=== PATIENT | male | born 1955 | race Caucasian/White ===

== ENCOUNTER 2017-03-20 14:31 | Inpatient (IN) | payer SELFPAY ==
[~2017-03-20] VITALS: Ht 162.6 cm; Wt 63.2 kg
[2017-03-20] MEDS ORDERED: fentaNYL PF VIAL 100 MCG/2 ML VIAL ONE (14:45)
[2017-03-20] MEDS: fentaNYL PF VIAL 100 MCG/2 ML VIAL IV PRN ×4 (14:50→15:36)
--- NOTE | 2017-03-20 14:52 | EKG ---
[facility] [address] [place] [address] Test Date: 2017-03-20 Test Time: 14:37:45 Pat Name: JOEL JAUREGUI Department: Room: Gender: M System Support Developer: : 1955 Requested By: PALOMA KAUFMAN Order Number: [id number] Reading MD: Measurements Intervals [place] Rate: 72 P: 62 [place]: 126 QRS: 65 QRSD: 106 T: 44 QT: 436 QTc: 479 Interpretive Statements SINUS RHYTHM LEFT ATRIAL ABNORMALITY INCOMPLETE RIGHT BUNDLE BRANCH BLOCK QRS(T) CONTOUR ABNORMALITY CONSIDER ANTEROLATERAL MYOCARDIAL DAMAGE PROLONGED QT RI6.01 Unconfirmed report No previous ECG available for comparison
[2017-03-20 14:54] LABS: POTASSIUM ISTAT 2.7 mmol/L (3.5-5.0)
[2017-03-20 14:58] LABS: BASO # 0.1 x10^3/uL (0.0-0.2); BASO % 1 % (0-3); EOS % 1 % (0-3); HEMATOCRIT 39.5 % (39.0-53.0); HEMOGLOBIN 13.3 g/dL (13.0-17.5); LYMPH # 2.3 x10^3/uL (1.0-4.8); LYMPH % 29 % (24-48); MEAN CORPUSCULAR HEMOGLOBIN 32 pg (25-35); MEAN CORPUSCULAR HGB CONC 34 g/dL (31-37); MEAN CORPUSCULAR VOLUME 96 fL (79-100); MONO % 10 % (0-9); NEUT % 59 % (31-73); PLATELET COUNT 183 x10^3/uL (140-400)
[2017-03-20 15:07] LABS: INR 1.2 (0.8-1.1); PROTHROMBIN TIME PATIENT 14.2 SEC (11.7-14.0)
[2017-03-20 15:11] LABS: CALCIUM 8.9 mg/dL (8.5-10.1); CREATININE 1.1 mg/dL (0.7-1.3); GFR 67.8
[2017-03-20 15:13] LABS: POTASSIUM 2.7 mmol/L (3.5-5.1)
[2017-03-20] MEDS ORDERED: CONTRAST GIVEN MC PRN (15:15)
[2017-03-20] MEDS ORDERED: ONDANSETRON PF 4 MG/2 ML VIAL. IV ONE (15:15)
--- NOTE | 2017-03-20 15:24 | RAD ---
Indication fall 2024 feet. Multiple trauma. The head and cervical spine were evaluated. Images of the cervical spine were reformatted in the coronal and sagittal planes. Several additional exams were obtained which are the subject of separate dictations. CT head: Findings. The calvarium appears unremarkable. The visualized paranasal sinuses appear normal. There is no subdural or epidural hematoma. Ventricles and sulci are normal given the patient's age. There is no mass or midline shift. There is no hemorrhage. No acute intracranial finding is seen. CT cervical spine: Findings The lung apices are clear. No significant soft tissue finding is seen in the neck. There are some modest spondylitic changes in the cervical spine. An acute finding is not seen. No acute or significant finding is seen on the reformatted images. IMPRESSION: Modest spondylitic changes in the cervical spine. No acute finding seen No acute finding in the head PQRS Compliance Statement: One or more of the following individualized dose reduction techniques were utilized for this examination: 1. Automated exposure control 2. Adjustment of the mA and/or kV according to patient size 3. Use of iterative reconstruction technique
--- NOTE | 2017-03-20 15:36 | RAD ---
Indication fall 2024. Multiple trauma. The chest abdomen and pelvis were evaluated. Approximately 75 cc of Omnipaque 300 was administered intravenously. No oral contrast was administered. Several additional exams were obtained which are the subject of separate dictations. CT chest: Findings The thoracic aorta appears unremarkable. There is no significant hilar or mediastinal adenopathy. No acute finding is seen in either lung. There is no pleural fluid. There is no pneumothorax. There is no evidence of pulmonary contusion. CT abdomen and pelvis: Findings. The liver is unremarkable. No splenic abnormality is seen and the gallbladder appears grossly normal. No pancreatic abnormality is seen. The adrenal glands are unremarkable. There is a 2 cm cyst associated with the left kidney. The kidneys are otherwise unremarkable. The stomach is distended with fluid and gas. An acute finding in the abdomen is not seen. No acute finding is seen in the pelvis. IMPRESSION: No acute finding seen in the chest, abdomen or pelvis PQRS Compliance Statement: One or more of the following individualized dose reduction techniques were utilized for this examination: 1. Automated exposure control 2. Adjustment of the mA and/or kV according to patient size 3. Use of iterative reconstruction technique
[2017-03-20] MEDS ORDERED: MORPHINE SULFATE 4 MG/ML DISP.SYRIN. IV/SQ PRN (15:45)
[2017-03-20] MEDS ORDERED: IOHEXOL 300 MG/ML 75 ML VIAL IV ONE (15:45)
--- NOTE | 2017-03-20 15:46 | RAD ---
Indication multiple trauma Axial images of the thoracic and lumbar spine were obtained. Images were reformatted in the coronal and sagittal planes. Several additional examinations were performed which are the subject of separate dictations. CT thoracic spine: Findings The axial images are unremarkable with regards to any acute finding. The reformatted images also are negative with regards to fracture. CT of the lumbar spine: The axial images show no acute finding. No fracture is seen. The reformatted images in the coronal and sagittal planes are also negative with regards to any fracture. A unilateral pars defect is noted on the left at L5 IMPRESSION: No acute finding seen in the thoracic or lumbar spine
--- NOTE | 2017-03-20 16:33 | RAD ---
Indication fall. AP and lateral views of the left humerus were obtained. There is a dislocation at the elbow. A fracture is not seen. Postreduction imaging of the elbow is advised
[2017-03-20] MEDS ORDERED: PROPOFOL 20 ML IV ONE ×2 (16:35→16:45)
--- NOTE | 2017-03-20 16:35 | RAD ---
Indication trauma. Pain. There is a dislocation at the elbow. The distal humerus is displaced ventral out of the elbow joint. There are bony fragments seen adjacent to the ulna which may represent small avulsed bony fragments. Postreduction imaging is advised.. IMPRESSION: Dislocated elbow
--- NOTE | 2017-03-20 16:37 | RAD ---
Indication multiple trauma. AP and lateral views of the left forearm were obtained. Known dislocated elbow is noted. There may be small avulsed fragments associated with the dislocated elbow. No additional finding is seen involving the forearm.
[2017-03-20] MEDS ORDERED: POTASSIUM CHLORIDE 30 MEQ in IV NORMAL SALINE 1000ML BAG 1,000 ML IV ONE (16:45)
--- NOTE | 2017-03-20 16:47 | RAD ---
EXAM: 1. Left knee 3 views. 2. Bilateral ankles 3 views. 3. Bilateral feet 3 views. 4. Left calcaneus 1 view. HISTORY: Trauma, fall, bilateral pain. COMPARISON: None. FINDINGS: No fractures are appreciated about the left knee. Joint spaces and alignment are maintained. There is no joint effusion. There is a comminuted fracture of the left calcaneus. Fracture lines intersect at least the posterior subtalar facet. There is a component of posterior displacement of the main calcaneal body fragment. The calcaneocuboid joint appears at least mildly widened. A small chip fracture fragment is seen along the posterior/inferior talus. Soft tissue swelling is noted. There is dorsal dislocation at the 5th metacarpophalangeal joint. There are nondisplaced fractures of the 3rd and 4th metatarsal necks. No fractures are appreciated about the left ankle. Joint spaces and alignment are maintained. No fractures are appreciated about the right ankle. There is a small osteophyte along the lateral corner of the talar dome with preservation of the joint spaces. No fractures are appreciated within the right foot. IMPRESSION: 1. Comminuted intra-articular displaced fracture of the left calcaneus with depression of Boehler's angle. 2. Widening of the calcaneal cuboid joint. Correlate to interval stability. 3. Dorsal dislocation of the left 5th metacarpophalangeal joint. 4. Nondisplaced fractures of the 3rd and 4th metatarsal necks.
[2017-03-20 17:04] LABS: DIRECT BILIRUBIN 0.1 mg/dL (0.0-0.2); TOTAL BILIRUBIN 0.8 mg/dL (0.2-1.0); TOTAL PROTEIN 6.9 g/dL (6.4-8.2)
[2017-03-20] MEDS ORDERED: ONDANSETRON PF 4 MG/2 ML VIAL. IV PRN (17:45)
[2017-03-20] MEDS ORDERED: DOCUSATE SODIUM 100 MG CAPSULE. PO PRN (17:45)
[2017-03-20] MEDS ORDERED: hydrALAZINE 20 MG/ML VIAL. IVP PRN (17:45)
[2017-03-20] MEDS ORDERED: IV NORMAL SALINE 1000ML BAG 1,000 ML IV ONE (17:45)
[2017-03-20] MEDS ORDERED: ACETAMINOPHEN 325 MG TABLET. PO PRN (17:45)
--- NOTE | 2017-03-20 17:51 | PDOC1 ---
History and Physical Date of Admission Date of Admission 03/20/17 Identification/Chief Complaint Chief Complaint fall from a roof Problems: Source Source: Chart review, Patient History of Present Illness History of Present Illness 61yo M, with h/o HTN, not on any meds, fell from a roof today. he was working on the roof, then slided down with a foam and fell from the roof about 20feet high. He landed on the ground with left side, mainly elbow and left ankle, not hip and head was only hit mildly and not lost consciousness. ER XR showed left calcaneus fx and left elbow dislocated. ERP did reduce the left elbow, with a sling now. and left ankle has splint on now. ERP told me she talked to dr. Escobedo who will not operate on pt and recommend fu with dr. Iniguez [phone] as outpt. pt was found K 2.7 in ER, denies etoh, N/V or diarrhea. XR IMPRESSION: 1. Comminuted intra-articular displaced fracture of the left calcaneus with depression of Boehler's angle. 2. Widening of the calcaneal cuboid joint. Correlate to interval stability. 3. Dorsal dislocation of the left 5th metacarpophalangeal joint. 4. Nondisplaced fractures of the 3rd and 4th metatarsal necks. Past Medical History Cardiovascular: HTN Past Surgical History Past Surgical History: No pertinent history Family History Family History: Hypertension Social History Smoke: Quit ALCOHOL: rare Drugs: None Current Medications Current Medications Current Medications Medications (Trade) Dose Ordered Sig/Stephanie Start Time Stop Time Status Last Admin Dose Admin Fentanyl Citrate (Fentanyl 2ml Vial) 25 mcg PRN Q15MIN PRN 03/20/17 14:45 03/21/17 14:44 03/20/17 15:36 25 MCG Info (Do NOT chart on this entry -- for MONITORING) 1 each PRN DAILY PRN 03/20/17 15:15 03/22/17 15:14 Iohexol (Omnipaque 300 Mg/ml) 75 ml 1X ONCE 03/20/17 15:45 03/20/17 15:46 DC 03/20/17 15:08 75 ML Morphine Sulfate 4 mg PRN Q15MIN PRN 03/20/17 15:45 03/21/17 15:44 03/20/17 15:51 4 MG Ondansetron HCl (Zofran) 4 mg 1X ONCE 03/20/17 15:15 03/20/17 15:16 DC 03/20/17 15:14 4 MG Potassium Chloride 30 meq/ Sodium Chloride 1,015 ml @ 75 mls/hr 1X ONCE 03/20/17 16:45 03/21/17 06:16 03/20/17 16:36 75 MLS/HR Propofol 20 ml @ 60 mls/hr 1X ONCE 03/20/17 16:45 03/20/17 17:04 DC Allergies Allergies Allergies Coded Allergies Type Severity Reaction Last Updated Verified No Known Drug Allergies 03/20/17 No ROS Review of System CONSTITUTIONAL: No fever or chills EYES: No recent changes SKIN: No rash or itching CARDIOVASCULAR: No chest pain, syncope, palpitations, or edema RESPIRATORY: No SOB or cough GASTROINTESTINAL: No nausea, vomiting or abdominal pain NEUROLOGICAL: No headaches or weakness ENDOCRINE: No cold or heat intolerance GENITOURINARY: No urgency or frequency of urination MUSCULOSKELETAL: No back pain or joint pain LYMPHATICS: No enlarged lymph nodes PSYCHIATRIC: No anxiety or depression Physical Exam Physical Exam GEN.: No apparent distress. Alert and oriented. HEENT: Head is normocephalic, atraumatic NECK: Supple. LUNGS: Clear to auscultation. HEART: RRR, S1, S2 present. Peripheral pulses intact ABDOMEN: Soft, nontender. Positive bowel sounds. EXTREMITIES: Without any cyanosis. left arm with a sling, left foot has splint on, can move toes. NEUROLOGIC: Normal speech, normal tone PSYCHIATRIC: Normal affect, normal mood. SKIN: No ulcerations Vitals Vitals Vital Signs Date Time Temp Pulse Resp B/P (MAP) Pulse Ox O2 Delivery O2 Flow Rate FiO2 03/20/17 15:36 16 99 Nasal Cannula 2.0 Labs Labs Laboratory Tests Test 03/20/17 14:35 03/20/17 14:42 White Blood Count 8.0 x10^3/uL (4.0-11.0) Red Blood Count 4.10 x10^6/uL (4.30-5.70) Hemoglobin 13.3 g/dL (13.0-17.5) Hematocrit 39.5 % (39.0-53.0) Mean Corpuscular Volume 96 fL (79-100) Mean Corpuscular Hemoglobin 32 pg (25-35) Mean Corpuscular Hemoglobin Concent 34 g/dL (31-37) Red Cell Distribution Width 13.0 % (11.5-14.5) Platelet Count 183 x10^3/uL (140-400) Neutrophils (%) (Auto) 59 % (31-73) Lymphocytes (%) (Auto) 29 % (24-48) Monocytes (%) (Auto) 10 % (0-9) Eosinophils (%) (Auto) 1 % (0-3) Basophils (%) (Auto) 1 % (0-3) Neutrophils # (Auto) 4.7 x10^3uL (1.8-7.7) Lymphocytes # (Auto) 2.3 x10^3/uL (1.0-4.8) Monocytes # (Auto) 0.8 x10^3/uL (0.0-1.1) Eosinophils # (Auto) 0.0 x10^3/uL (0.0-0.7) Basophils # (Auto) 0.1 x10^3/uL (0.0-0.2) Prothrombin Time 14.2 SEC (11.7-14.0) Prothromb Time International Ratio 1.2 (0.8-1.1) Activated Partial Thromboplast Time 27 SEC (24-38) Sodium Level 144 mmol/L (136-145) Potassium Level 2.7 mmol/L (3.5-5.1) Chloride Level 104 mmol/L (98-107) Carbon Dioxide Level 31 mmol/L (21-32) Anion Gap 9 (6-14) 15 mmol/L (6-14) Blood Urea Nitrogen 12 mg/dL (8-26) Creatinine 1.1 mg/dL (0.7-1.3) Estimated GFR (Cockcroft-Gault) 67.8 Glucose Level 135 mg/dL (70-99) 131 mg/dL (70-99) Lactic Acid Level 2.9 mmol/L (0.4-2.0) Calcium Level 8.9 mg/dL (8.5-10.1) Total Bilirubin 0.8 mg/dL (0.2-1.0) Direct Bilirubin 0.1 mg/dL (0.0-0.2) Aspartate Amino Transf (AST/SGOT) 23 U/L (15-37) Alanine Aminotransferase (ALT/SGPT) 24 U/L (16-63) Alkaline Phosphatase 66 U/L (46-116) Total Protein 6.9 g/dL (6.4-8.2) Albumin 4.0 g/dL (3.4-5.0) Ethyl Alcohol Level < 10 mg/dL (0-10) Bedside Hemoglobin 12.9 g/dL (14-18) Bedside Hematocrit 38 % (37-52) Bedside Sodium 143 mmol/L (135-145) Bedside Potassium 2.7 mmol/L (3.5-5.0) Bedside Chloride 102 mmol/L (98-110) Bedside Total CO2 30 mmol/L (23-32) Bedside Blood Urea Nitrogen 11 mg/dL (8-26) Bedside Creatinine 1.1 mg/dL (0.5-1.4) Bedside Ionized Calcium (Farncesca) 1.11 mmol/L (1.13-1.32) Laboratory Tests Test 03/20/17 14:35 03/20/17 14:42 White Blood Count 8.0 x10^3/uL (4.0-11.0) Red Blood Count 4.10 x10^6/uL (4.30-5.70) Hemoglobin 13.3 g/dL (13.0-17.5) Hematocrit 39.5 % (39.0-53.0) Mean Corpuscular Volume 96 fL (79-100) Mean Corpuscular Hemoglobin 32 pg (25-35) Mean Corpuscular Hemoglobin Concent 34 g/dL (31-37) Red Cell Distribution Width 13.0 % (11.5-14.5) Platelet Count 183 x10^3/uL (140-400) Neutrophils (%) (Auto) 59 % (31-73) Lymphocytes (%) (Auto) 29 % (24-48) Monocytes (%) (Auto) 10 % (0-9) Eosinophils (%) (Auto) 1 % (0-3) Basophils (%) (Auto) 1 % (0-3) Neutrophils # (Auto) 4.7 x10^3uL (1.8-7.7) Lymphocytes # (Auto) 2.3 x10^3/uL (1.0-4.8) Monocytes # (Auto) 0.8 x10^3/uL (0.0-1.1) Eosinophils # (Auto) 0.0 x10^3/uL (0.0-0.7) Basophils # (Auto) 0.1 x10^3/uL (0.0-0.2) Prothrombin Time 14.2 SEC (11.7-14.0) Prothromb Time International Ratio 1.2 (0.8-1.1) Activated Partial Thromboplast Time 27 SEC (24-38) Sodium Level 144 mmol/L (136-145) Potassium Level 2.7 mmol/L (3.5-5.1) Chloride Level 104 mmol/L (98-107) Carbon Dioxide Level 31 mmol/L (21-32) Anion Gap 9 (6-14) 15 mmol/L (6-14) Blood Urea Nitrogen 12 mg/dL (8-26) Creatinine 1.1 mg/dL (0.7-1.3) Estimated GFR (Cockcroft-Gault) 67.8 Glucose Level 135 mg/dL (70-99) 131 mg/dL (70-99) Lactic Acid Level 2.9 mmol/L (0.4-2.0) Calcium Level 8.9 mg/dL (8.5-10.1) Total Bilirubin 0.8 mg/dL (0.2-1.0) Direct Bilirubin 0.1 mg/dL (0.0-0.2) Aspartate Amino Transf (AST/SGOT) 23 U/L (15-37) Alanine Aminotransferase (ALT/SGPT) 24 U/L (16-63) Alkaline Phosphatase 66 U/L (46-116) Total Protein 6.9 g/dL (6.4-8.2) Albumin 4.0 g/dL (3.4-5.0) Ethyl Alcohol Level < 10 mg/dL (0-10) Bedside Hemoglobin 12.9 g/dL (14-18) Bedside Hematocrit 38 % (37-52) Bedside Sodium 143 mmol/L (135-145) Bedside Potassium 2.7 mmol/L (3.5-5.0) Bedside Chloride 102 mmol/L (98-110) Bedside Total CO2 30 mmol/L (23-32) Bedside Blood Urea Nitrogen 11 mg/dL (8-26) Bedside Creatinine 1.1 mg/dL (0.5-1.4) Bedside Ionized Calcium (Francesca) 1.11 mmol/L (1.13-1.32) VTE Prophylaxis Ordered VTE Prophylaxis Devices: Yes VTE Pharmacological Prophylaxi: Yes Assessment/Plan Assessment/Plan traumatic left elbow dislocation from mechanical fall from a roof s/p reduction traumatic left calcaneus fx with splint Traumatic Dorsal dislocation of the left 5th metacarpophalangeal joint. traumatic left Nondisplaced fractures of the 3rd and 4th metatarsal necks. hypokalemia htn plan: dr. Escobedo consult, will not operate on pt and recommend fu with dr. Iniguez as outpt. pain control PTOT replete K check Mag dvt ppx check vitd Pt lives at home with brother and sister in law, will see how he does tmr, may need rehab if cannot handle at home FELIPA OVIEDO MD Mar 20, 2017 17:51
[2017-03-20] MEDS ORDERED: POTASSIUM CHLORIDE 20 MEQ TABLET.ER. PO ONE (18:00)
[2017-03-20] MEDS: oxyCODONE/APAP 5/325 1 TAB TABLET PO PRN (19:40)
[2017-03-20] MEDS: MORPHINE SULFATE 2 MG/ML DISP.SYRIN. IV PRN ×2 (19:40→23:00)
--- NOTE | 2017-03-20 19:46 | ED.ADGEN ---
Adult General Chief Complaint Chief Complaint: TRAUMA ACTIVATION HPI HPI Patient is a 61 year old man, who denies a past medical history, who presents to the emergency department via EMS, with report of a fall approximately 22 feet. Patient states that he was on a roof, kneeling on a pad performed as, when the pad slid, and he fell off the roof. He states he landed on his left foot, and then fell onto his left elbow and patient is complaining of pain in his left foot, and left elbow. He denies striking his head or neck, denies any loss of consciousness. Denies any chest pain, shortness breath, nausea, vomiting , preceding symptoms. Patient with splint in place via EMS on left elbow and left lower extremity. He denies any previous injuries to these areas. Complaining of tenderness and pain in his foot and elbow. C-collar was placed by EMS prior to transport to the ED. Trauma activation called based on mechanism of action upon patient's arrival in the ED. Review of Systems Review of Systems Constitutional: Denies fever or chills. [] Eyes: Denies change in visual acuity. [] HENT: Denies nasal congestion or sore throat. [] Respiratory: Denies cough or shortness of breath. [] Cardiovascular: Denies chest pain or edema. [] GI: Denies abdominal pain, nausea, vomiting, bloody stools or diarrhea. [] : Denies dysuria. [] Musculoskeletal: Denies back pain, complaining of pain in the left elbow and forearm, also in the left foot and ankle. Integument: Denies rash. [] Neurologic: Denies headache, focal weakness or sensory changes. [] Endocrine: Denies polyuria or polydipsia. [] Lymphatic: Denies swollen glands. [] Psychiatric: Denies depression or anxiety. [] Current Medications Current Medications Current Medications Medications (Trade) Dose Ordered Sig/Stephanie Start Time Stop Time Status Last Admin Dose Admin Fentanyl Citrate (Fentanyl 2ml Vial) 25 mcg PRN Q15MIN PRN 03/20/17 14:45 03/21/17 14:44 03/20/17 15:36 25 MCG Info (Do NOT chart on this entry -- for MONITORING) 1 each PRN DAILY PRN 03/20/17 15:15 03/22/17 15:14 Iohexol (Omnipaque 300 Mg/ml) 75 ml 1X ONCE 03/20/17 15:45 03/20/17 15:46 DC 03/20/17 15:08 75 ML Morphine Sulfate 4 mg PRN Q15MIN PRN 03/20/17 15:45 03/21/17 15:44 03/20/17 15:51 4 MG Ondansetron HCl (Zofran) 4 mg 1X ONCE 03/20/17 15:15 03/20/17 15:16 DC 03/20/17 15:14 4 MG Potassium Chloride 30 meq/ Sodium Chloride 1,015 ml @ 75 mls/hr 1X ONCE 03/20/17 16:45 03/21/17 06:16 03/20/17 16:36 75 MLS/HR Propofol 20 ml @ 60 mls/hr 1X ONCE 03/20/17 16:45 03/20/17 17:04 DC 03/20/17 15:54 60 MLS/HR Allergies Allergies Allergies Coded Allergies Type Severity Reaction Last Updated Verified No Known Drug Allergies 03/20/17 No Physical Exam Physical Exam Constitutional: Well developed, well nourished, no acute distress, non-toxic appearance. [] HENT: Normocephalic, atraumatic, bilateral external ears normal, oropharynx moist, no oral exudates, nose normal. [] Eyes: PERRLA, EOMI, conjunctiva normal, no discharge. [] Neck: Normal range of motion, no tenderness, supple, no stridor. [] Cardiovascular:Heart rate regular rhythm, no murmur [] Lungs & Thorax: Bilateral breath sounds clear to auscultation [] Abdomen: Bowel sounds normal, soft, no tenderness, no masses, no pulsatile masses. [] Skin: Warm, dry, no erythema, no rash. [] Back: No tenderness, no CVA tenderness. [] Extremities: No tenderness, no cyanosis, no clubbing, ROM intact, no edema. [] Neurologic: Alert and oriented X 3, normal motor function, normal sensory function, no focal deficits noted. [] Psychologic: Affect normal, judgement normal, mood normal. [] Current Patient Data Vital Signs Vital Signs Date Time Temp Pulse Resp B/P (MAP) Pulse Ox O2 Delivery O2 Flow Rate FiO2 03/20/17 15:36 16 99 Nasal Cannula 2.0 Lab Values Laboratory Tests Test 03/20/17 14:35 03/20/17 14:42 White Blood Count 8.0 x10^3/uL (4.0-11.0) Red Blood Count 4.10 x10^6/uL (4.30-5.70) L Hemoglobin 13.3 g/dL (13.0-17.5) Hematocrit 39.5 % (39.0-53.0) Mean Corpuscular Volume 96 fL (79-100) Mean Corpuscular Hemoglobin 32 pg (25-35) Mean Corpuscular Hemoglobin Concent 34 g/dL (31-37) Red Cell Distribution Width 13.0 % (11.5-14.5) Platelet Count 183 x10^3/uL (140-400) Neutrophils (%) (Auto) 59 % (31-73) Lymphocytes (%) (Auto) 29 % (24-48) Monocytes (%) (Auto) 10 % (0-9) H Eosinophils (%) (Auto) 1 % (0-3) Basophils (%) (Auto) 1 % (0-3) Neutrophils # (Auto) 4.7 x10^3uL (1.8-7.7) Lymphocytes # (Auto) 2.3 x10^3/uL (1.0-4.8) Monocytes # (Auto) 0.8 x10^3/uL (0.0-1.1) Eosinophils # (Auto) 0.0 x10^3/uL (0.0-0.7) Basophils # (Auto) 0.1 x10^3/uL (0.0-0.2) Prothrombin Time 14.2 SEC (11.7-14.0) H Prothrombin Time INR 1.2 (0.8-1.1) H PTT 27 SEC (24-38) Sodium Level 144 mmol/L (136-145) Potassium Level 2.7 mmol/L (3.5-5.1) *L Chloride Level 104 mmol/L (98-107) Carbon Dioxide Level 31 mmol/L (21-32) Anion Gap 9 (6-14) 15 mmol/L (6-14) H Blood Urea Nitrogen 12 mg/dL (8-26) Creatinine 1.1 mg/dL (0.7-1.3) Estimated GFR (Cockcroft-Gault) 67.8 Glucose Level 135 mg/dL (70-99) H 131 mg/dL (70-99) H Lactic Acid Level 2.9 mmol/L (0.4-2.0) H Calcium Level 8.9 mg/dL (8.5-10.1) Magnesium Level 2.0 mg/dL (1.8-2.4) Total Bilirubin 0.8 mg/dL (0.2-1.0) Direct Bilirubin 0.1 mg/dL (0.0-0.2) Aspartate Amino Transferase (AST) 23 U/L (15-37) Alanine Aminotransferase (ALT) 24 U/L (16-63) Alkaline Phosphatase 66 U/L (46-116) Total Protein 6.9 g/dL (6.4-8.2) Albumin 4.0 g/dL (3.4-5.0) Ethyl Alcohol Level < 10 mg/dL (0-10) POC Hemoglobin 12.9 g/dL (14-18) L POC Hematocrit 38 % (37-52) POC Sodium 143 mmol/L (135-145) POC Potassium 2.7 mmol/L (3.5-5.0) L POC Chloride 102 mmol/L (98-110) POC Total CO2 30 mmol/L (23-32) POC Blood Urea Nitrogen 11 mg/dL (8-26) POC Creatinine 1.1 mg/dL (0.5-1.4) POC Ionized Calcium (Francesca) 1.11 mmol/L (1.13-1.32) L Laboratory Tests 03/20/17 14:35 Laboratory Tests 03/20/17 14:35 03/20/17 14:42 EKG EKG ECG: Sinus rhythm, heart rate 72 bpm, upright axis, incomplete right bundle- branch block noted, with contour abnormalities noted in the anterior lateral leads, QTc of 479, MN 126, QRS of 106. Abnormal ECG, does not meet STEMI criteria. As interpreted by me.[] Radiology/Procedures Radiology/Procedures [][facility] [address] [place], [place] [id number] IMAGING REPORT Signed PATIENT: JOEL JAUREGUI ACCOUNT: [id number] : 1955 LOCATION: ER AGE: 61 SEX: M EXAM STATUS: PRE ER ORD. PHYSICIAN: PALOMA KAUFMAN DO REASON: Fall 25 feet PROCEDURE: CT CHEST ABD PELVIS W/CONTRAST Indication fall 2024 feet. Multiple trauma. The chest abdomen and pelvis were evaluated. Approximately 75 cc of Omnipaque 300 was administered intravenously. No oral contrast was administered. Several additional exams were obtained which are the subject of separate dictations. CT chest: Findings The thoracic aorta appears unremarkable. There is no significant hilar or mediastinal adenopathy. No acute finding is seen in either lung. There is no pleural fluid. There is no pneumothorax. There is no evidence of pulmonary contusion. CT abdomen and pelvis: Findings. The liver is unremarkable. No splenic abnormality is seen and the gallbladder appears grossly normal. No pancreatic abnormality is seen. The adrenal glands are unremarkable. There is a 2 cm cyst associated with the left kidney. The kidneys are otherwise unremarkable. The stomach is distended with fluid and gas. An acute finding in the abdomen is not seen. No acute finding is seen in the pelvis. IMPRESSION: No acute finding seen in the chest, abdomen or pelvis PQRS Compliance Statement: One or more of the following individualized dose reduction techniques were utilized for this examination: 1. Automated exposure control 2. Adjustment of the mA and/or kV according to patient size 3. Use of iterative reconstruction technique DICTATED and SIGNED BY: DONAVAN ESTEBAN MD DATE: 03/20/171518 CC: PALOMA KAUFMAN DO; UNKNOWN PCP NAME ~ [facility] [address] [place], [place] [id number] IMAGING REPORT Signed PATIENT: JOEL JAUREGUI ACCOUNT: [id number] : 1955 LOCATION: ER AGE: 61 SEX: M EXAM STATUS: PRE ER ORD. PHYSICIAN: PALOMA KAUFMAN DO REASON: Fall 25 feet PROCEDURE: CT HEAD AND CERVICAL SPINE WO Indication fall 2024 feet. Multiple trauma. The head and cervical spine were evaluated. Images of the cervical spine were reformatted in the coronal and sagittal planes. Several additional exams were obtained which are the subject of separate dictations. CT head: Findings. The calvarium appears unremarkable. The visualized paranasal sinuses appear normal. There is no subdural or epidural hematoma. Ventricles and sulci are normal given the patient's age. There is no mass or midline shift. There is no hemorrhage. No acute intracranial finding is seen. CT cervical spine: Findings The lung apices are clear. No significant soft tissue finding is seen in the neck. There are some modest spondylitic changes in the cervical spine. An acute finding is not seen. No acute or significant finding is seen on the reformatted images. IMPRESSION: Modest spondylitic changes in the cervical spine. No acute finding seen No acute finding in the head PQRS Compliance Statement: One or more of the following individualized dose reduction techniques were utilized for this examination: 1. Automated exposure control 2. Adjustment of the mA and/or kV according to patient size 3. Use of iterative reconstruction technique DICTATED and SIGNED BY: DONAVAN ESTEBAN MD DATE: 03/20/171512 CC: PALOMA KAUFMAN DO; UNKNOWN PCP NAME ~ [facility] [address] [place], [place] [id number] IMAGING REPORT Signed PATIENT: JOEL JAUREGUI ACCOUNT: [id number] : 1955 LOCATION: ER AGE: 61 SEX: M EXAM [id number] STATUS: REG ER ORD. PHYSICIAN: PALOMA KAUFMAN DO REASON: Fall 25 feet PROCEDURE: CT LUMBAR SPINE RECONSTRUCTION; CT THORACIC SPINE RECONSTRUCT Indication multiple trauma Axial images of the thoracic and lumbar spine were obtained. Images were reformatted in the coronal and sagittal planes. Several additional examinations were performed which are the subject of separate dictations. CT thoracic spine: Findings The axial images are unremarkable with regards to any acute finding. The reformatted images also are negative with regards to fracture. CT of the lumbar spine: The axial images show no acute finding. No fracture is seen. The reformatted images in the coronal and sagittal planes are also negative with regards to any fracture. A unilateral pars defect is noted on the left at L5 IMPRESSION: No acute finding seen in the thoracic or lumbar spine DICTATED and SIGNED BY: DONAVAN ESTEBAN MD DATE: 03/20/171531 CC: PALOMA KAUFMAN DO; UNKNOWN PCP NAME ~ [facility] [address] [place] [address] IMAGING REPORT Signed PATIENT: JOEL JAUREGUI ACCOUNT: [id number] : 1955 LOCATION: ER AGE: 61 SEX: M EXAM STATUS: REG ER ORD. PHYSICIAN: PALOMA KAUFMAN DO REASON: fall/pain PROCEDURE: ELBOW LEFT 3V Indication trauma. Pain. There is a dislocation at the elbow. The distal humerus is displaced ventral out of the elbow joint. There are bony fragments seen adjacent to the ulna which may represent small avulsed bony fragments. Postreduction imaging is advised.. IMPRESSION: Dislocated elbow DICTATED and SIGNED BY: DONAVAN ESTEBAN MD DATE: 03/20/171627 CC: PALOMA KAUFMAN DO; NO PCP ~ [facility] [id number] [place] [address] IMAGING REPORT Signed PATIENT: JOEL JAUREGUI ACCOUNT: [id number] : 1955 LOCATION: ER AGE: 61 SEX: M EXAM STATUS: REG ER ORD. PHYSICIAN: PALOMA KAUFMAN DO REASON: fall/pain,CT FIRST PROCEDURE: HUMERUS LEFT Indication fall. AP and lateral views of the left humerus were obtained. There is a dislocation at the elbow. A fracture is not seen. Postreduction imaging of the elbow is advised DICTATED and SIGNED BY: DONAVAN ESTEBAN MD DATE: 03/20/171626 CC: PALOMA KAUFMAN DO; NO PCP ~ [facility] [address] [place] [address] IMAGING REPORT Signed PATIENT: JOEL JAUREGUI ACCOUNT: [id number] : 1955 LOCATION: ER AGE: 61 SEX: M EXAM [id number]; [id number]; [id number] STATUS: REG ER ORD. PHYSICIAN: PALOMA KAUFMAN DO REASON: fall/pain PROCEDURE: ANKLE BILAT 3V; CALCANEUS LEFT; FOOT BILAT 3V; KNEE LEFT 3V ADDENDUM ADDENDUM: There is also a small chip fracture along the most posterior aspect of the talus. DICTATED AND SIGNED BY: CAT DURÁN MD DATE: 03/20/17 1654 CC: PALOMA KAUFMAN DO; NO PCP ~ EXAM: 1. Left knee 3 views. 2. Bilateral ankles 3 views. 3. Bilateral feet 3 views. 4. Left calcaneus 1 view. HISTORY: Trauma, fall, bilateral pain. COMPARISON: None. FINDINGS: No fractures are appreciated about the left knee. Joint spaces and alignment are maintained. There is no joint effusion. There is a comminuted fracture of the left calcaneus. Fracture lines intersect at least the posterior subtalar facet. There is a component of posterior displacement of the main calcaneal body fragment. The calcaneocuboid joint appears at least mildly widened. A small chip fracture fragment is seen along the posterior/inferior talus. Soft tissue swelling is noted. There is dorsal dislocation at the 5th metacarpophalangeal joint. There are nondisplaced fractures of the 3rd and 4th metatarsal necks. No fractures are appreciated about the left ankle. Joint spaces and alignment are maintained. No fractures are appreciated about the right ankle. There is a small osteophyte along the lateral corner of the talar dome with preservation of the joint spaces. No fractures are appreciated within the right foot. IMPRESSION: 1. Comminuted intra-articular displaced fracture of the left calcaneus with depression of Boehler's angle. 2. Widening of the calcaneal cuboid joint. Correlate to interval stability. 3. Dorsal dislocation of the left 5th metacarpophalangeal joint. 4. Nondisplaced fractures of the 3rd and 4th metatarsal necks. DICTATED and SIGNED BY: CAT DURÁN MD DATE: 03/20/17 163 CC: PALOMA KAUFMAN DO; NO PCP ~ [facility] [address] [place], [place] [id number] IMAGING REPORT Signed PATIENT: JOEL JAUREGUI ACCOUNT: [id number] : 1955 LOCATION: ER AGE: 61 SEX: M EXAM [id number]; [id number]; [id number] STATUS: REG ER ORD. PHYSICIAN: PALOMA KAUFMAN DO REASON: fall/pain PROCEDURE: ANKLE BILAT 3V; CALCANEUS LEFT; FOOT BILAT 3V; KNEE LEFT 3V ADDENDUM ADDENDUM: There is also a small chip fracture along the most posterior aspect of the talus. DICTATED AND SIGNED BY: CAT DURÁN MD DATE: 03/20/17 165 CC: PALOMA KAUFMAN DO; NO PCP ~ EXAM: 1. Left knee 3 views. 2. Bilateral ankles 3 views. 3. Bilateral feet 3 views. 4. Left calcaneus 1 view. HISTORY: Trauma, fall, bilateral pain. COMPARISON: None. FINDINGS: No fractures are appreciated about the left knee. Joint spaces and alignment are maintained. There is no joint effusion. There is a comminuted fracture of the left calcaneus. Fracture lines intersect at least the posterior subtalar facet. There is a component of posterior displacement of the main calcaneal body fragment. The calcaneocuboid joint appears at least mildly widened. A small chip fracture fragment is seen along the posterior/inferior talus. Soft tissue swelling is noted. There is dorsal dislocation at the 5th metacarpophalangeal joint. There are nondisplaced fractures of the 3rd and 4th metatarsal necks. No fractures are appreciated about the left ankle. Joint spaces and alignment are maintained. No fractures are appreciated about the right ankle. There is a small osteophyte along the lateral corner of the talar dome with preservation of the joint spaces. No fractures are appreciated within the right foot. IMPRESSION: 1. Comminuted intra-articular displaced fracture of the left calcaneus with depression of Boehler's angle. 2. Widening of the calcaneal cuboid joint. Correlate to interval stability. 3. Dorsal dislocation of the left 5th metacarpophalangeal joint. 4. Nondisplaced fractures of the 3rd and 4th metatarsal necks. DICTATED and SIGNED BY: CAT DURÁN MD DATE: 03/20/17 1635 CC: PALOMA KAUFMAN DO; NO PCP ~ Course & Med Decision Making Course & Med Decision Making Pertinent Labs and Imaging studies reviewed. (See chart for details) Trauma activation initiated upon patient's arrival to the ED. Patient complaining of pain in the left foot as stated, also left upper extremity, with concern for dislocation potential fracture of the left elbow, and of the left calcaneus. Also noted to have swelling and deformity of the fifth metatarsal. Findings as above discussed with Dr. Collier of surgery, CT imaging of the head, neck, chest abdomen and pelvis obtained, along with x-rays of the left upper and left lower extremities, and bilateral feet. CT imaging of head, neck, chest abdomen and pelvis did not reveal any concerning findings. Patient without any neck pain as stated, c-collar cleared without issue. Patient noted to have a left elbow dislocation as stated, with concern for chip fracture, also noted to have a comminuted and displaced calcaneal fracture with acute fracture of the talus, and fractures of metatarsals 5, 4 and 3 of the left foot, with a dislocation of the fifth phalanx. Patient also noted a potassium of 2.7, does not take any medications, history of hypokalemia. Noted to have a lactic acidosis at 2.9, IV fluids ordered, along with IV potassium. I did discuss findings with Dr. Escobedo of orthopedics, at this time will perform procedural sedation in the emergency department for immediate reduction of left elbow, will reduce displaced fifth phalanx, in regards to patient's calcaneal fractures , and for fractures, he reports that he does not manage this type of injury, and recommends patient placed in a posterior splint stabilization at this time, nonweightbearing, and be referred to Dr. Adis Iniguez, , for evaluation and management of the calcaneal injury. I did discuss this with patient, patient received multiple doses of pain medication, and has potassium infusing as stated this time. Patient is agreeable to procedural sedation, which is performed per nursing notes and accompanying note, without consultation using propofol. Patient with successful reduction of left elbow and left fifth phalanx dislocation with assistance of Dr. Ambrose emergency department, without complication. Patient agreeable for admission to the hospitalist stated, findings as above were reviewed with Dr. Collier, will see the patient in consultation. Findings as above discussed with Dr. Nugent of internal medicine, who did evaluate the patient in the emergency department, patient accepted to her service as a full admission to the medical telemetry floor for continued repletion, monitoring, and symptom management. Postreduction imaging reveals appropriate reduction, patient neurovascularly intact. Patient transferred to the floor without issue. Dragon Disclaimer Dragon Disclaimer This electronic medical record was generated, in whole or in part, using a voice recognition dictation system. Procedural Sedation Proc Sed Indication: Procedural sedation for reduction of left elbow dislocation, left fifth phalanx reduction. Consent: I have discussed with the patient and/or the patient authorization representative the indication, alternatives, and the possible risks and /or complications of the planned procedure and the anesthesia methods. The patient and/or patient authorization representative appear to understand and agree to proceed. Pre-Sedation Documentation and Exam: Patient neurovascularly intact. Airway Assessment: normal. Prior History of Anesthesia Complications: none. ASA Classification: 1 Sedation/ Anesthesia Plan: Propofol, please see nursing notes for exact doses and times. Medications Used: see nursing notes. Monitoring and Safety: The patient was placed on a secured entrance monitor and vital signs, pulse oximetry and level of consciousness were continuously evaluated throughout the procedure. The patient was closely monitored until recovery from the medications was complete and the patient had returned to baseline status. (The following sections must be completed) Post-Sedation Vital Signs: [EDM.VS] Post-Sedation Exam: Patient neurovascularly intact, with short leg posterior splint in place on left lower extremity. Complications: none. Patient with reduction of left elbow anterior dislocation, via traction countertraction, placed in sling and swath, and reduction of fifth phalanx of the left foot, with placement of posterior short-leg splint, neurovascularly intact pre-and post examination. Vital Signs Vital Signs Date Time Temp Pulse Resp B/P (MAP) Pulse Ox O2 Delivery O2 Flow Rate FiO2 03/20/17 15:36 16 99 Nasal Cannula 2.0 Departure Impression: Primary Impression: Hypokalemia Additional Impressions: Dislocation of left elbow Foot fracture Left calcaneal fracture Fall Disposition: 09 ADMITTED INPATIENT Admitting Physician: Geoffrey Nugent Condition: IMPROVED Problem Qualifiers PALOMA KAUFMAN DO Mar 20, 2017 19:46
[2017-03-20 20:22] VITALS: BP 128/81
[2017-03-20] MEDS ORDERED: ENOXAPARIN 40 MG/0.4 ML SYRINGE. SQ SCH (21:00)
[2017-03-20 23:00] VITALS: BP 119/67
[2017-03-20] MEDS: traMADol 50 MG TABLET PO PRN (23:00)
[2017-03-21 03:00] VITALS: BP 104/62
[2017-03-21] MEDS: oxyCODONE/APAP 5/325 1 TAB TABLET PO PRN ×2 (03:48→10:57)
[2017-03-21 05:15] LABS: BASO % 0 % (0-3); EOS % 0 % (0-3); HEMATOCRIT 35.6 % (39.0-53.0); HEMOGLOBIN 12.2 g/dL (13.0-17.5); LYMPH # 1.3 x10^3/uL (1.0-4.8); LYMPH % 16 % (24-48); MEAN CORPUSCULAR HEMOGLOBIN 33 pg (25-35); MEAN CORPUSCULAR HGB CONC 34 g/dL (31-37); MEAN CORPUSCULAR VOLUME 97 fL (79-100); MONO % 9 % (0-9); NEUT % 74 % (31-73); PLATELET COUNT 135 x10^3/uL (140-400); RED BLOOD COUNT 3.69 x10^6/uL (4.30-5.70); RED CELL DISTRIBUTION WIDTH 13.2 % (11.5-14.5); WHITE BLOOD COUNT 8.3 x10^3/uL (4.0-11.0)
[2017-03-21 05:43] LABS: CALCIUM 8.2 mg/dL (8.5-10.1); GFR 75.7; POTASSIUM 4.2 mmol/L (3.5-5.1)
[2017-03-21] MEDS: traMADol 50 MG TABLET PO PRN (05:51)
[2017-03-21 07:00] VITALS: BP 118/72
--- NOTE | 2017-03-21 07:41 | RAD ---
Indication post reduction. AP oblique and lateral views of the left foot were obtained. Comparison is made to a study approximately one hour earlier. Again seen are fractures of the third and fourth metatarsal necks. There has not been a significant change in positioning of fracture fragments relative to the previous exam. Comminuted fracture of the calcaneus is noted. A posterior splint has been applied relative to the previous exam
--- NOTE | 2017-03-21 07:46 | RAD ---
Indication post reduction. AP oblique and lateral views of the left elbow were obtained at 17 2200 compared to an examination approximately one hour earlier. In the interval there has been reduction of previously identified dislocation. There are small densities in the soft tissues about the elbow. These may represent avulsed fracture fragments or conceivably radiopaque foreign bodies in the soft tissues. IMPRESSION: Interval reduction.
[2017-03-21] MEDS: MORPHINE SULFATE 2 MG/ML DISP.SYRIN. IV PRN ×2 (08:17→15:42)
[2017-03-21] MEDS ORDERED: INFLUENZA VAX SCREEN BY RX. MC ONE (09:00)
[2017-03-21] MEDS ORDERED: FLU VACC QS2017-18 (36MOS+)/PF 0.5 ML SYRINGE. VAX IM ONE (09:00)
[2017-03-21 11:00] VITALS: BP 115/94
--- NOTE | 2017-03-21 13:16 | PDOC3 ---
Discharge Summary [facility] Date of Admission: Mar 20, 2017 Discharge Date: Mar 21, 2017 Admitting Diagnosis traumatic left calcaneus fx with splint Traumatic Dorsal dislocation of the left 5th metacarpophalangeal joint s/p reduction traumatic left Nondisplaced fractures of the 3rd and 4th metatarsal necks. hypokalemia htn Problems: Final Diagnosis CONSULTS dr. Escobedo Brief Hospital Course 61yo M, with h/o HTN, not on any meds, fell from a roof today. he was working on the roof, then slided down with a foam and fell from the roof about 20feet high. He landed on the ground with left side, mainly elbow and left ankle, not hip and head was only hit mildly and not lost consciousness. ER XR showed left calcaneus fx and left elbow dislocated. ERP did reduce the left elbow, with a sling now. and left ankle has splint on now. ERP told me she talked to dr. Escobedo who will not operate on pt and recommend fu with dr. Iniguez [phone] as outpt. pt was found K 2.7 in ER, denies etoh, N/V or diarrhea. XR IMPRESSION: 1. Comminuted intra-articular displaced fracture of the left calcaneus with depression of Boehler's angle. 2. Widening of the calcaneal cuboid joint. Correlate to interval stability. 3. Dorsal dislocation of the left 5th metacarpophalangeal joint. 4. Nondisplaced fractures of the 3rd and 4th metatarsal necks. dr. Escobedo consulted by phone with ERP, as per ERP, dr. Escobedo will not operate on pt and recommend fu with dr. Iniguez [phone] as outpt for calcaneus. have not seen dr. Escobedo yet today, dc pt if no intervention with dr Egan , asked nurse to fu dr. Escobedo later today. dc home with percocet 5mg 30pills prn. pt has no insurance, lives with brother and sister in law, can go home with wheelchair. dc time 35min. GEN.: No apparent distress. Alert and oriented. HEENT: Head is normocephalic, atraumatic NECK: Supple. LUNGS: Clear to auscultation. HEART: RRR, S1, S2 present. Peripheral pulses intact ABDOMEN: Soft, nontender. Positive bowel sounds. EXTREMITIES: Without any cyanosis. left arm with a sling, left foot has splint on, can move toes. NEUROLOGIC: Normal speech, normal tone PSYCHIATRIC: Normal affect, normal mood. SKIN: No ulcerations Patient History: FHx: schizophrenia 32 FATHER Problems: Disposition home CONDITION AT DISCHARGE: Improved Diet regular Follow Up dr. Iniguez [phone] as outpt. FELIPA OVIEDO MD Mar 21, 2017 13:16
[2017-03-21] MEDS ORDERED: OXYC1TAB7 PO (13:20)
[2017-03-21 15:00] VITALS: BP 156/63
--- NOTE | 2017-03-21 16:14 | PDOC ---
Provider Note Provider Note 61 year old male trauma activation after falling 22 feet off of roof. X-rays were reviewed and show a comminuted displaced calcaneus fracture and third and fourth metatarsal neck fractures. Left elbow dislocation and fifth toe dislocation were successfully reduced in the ER. Dr. Escobedo recommended following up outpatient with a foot and ankle specialist, Dr. Adis Iniguez, for calcaneal fracture treatment. Toe-touch weightbearing on the LLE. Keep posterior splint dry and intact. Continue sling for left elbow dislocation. From ortho standpoint, he is safe for discharge to home today. JORDIN NAJERA Mar 21, 2017 4:14 pm
== END 2017-03-21 17:04 | disposition home or self-care (01) | DRG 563 ==
LOC: ER 14:31 → 4 NORTH 17:10
PROVIDERS: ADMIT Internal Medicine; ATTEND Internal Medicine
PROC: 0PSLXZZ Reposition Left Ulna, External Approach (ICD-10-PCS; principal; 2017-03-20)
DX: S92.062A Displaced intraarticular fracture of left calcaneus, initial encounter for closed fracture (principal); E87.6 Hypokalemia; I10 Essential (primary) hypertension; W13.2XXA Fall from, out of or through roof, initial encounter; F32.9 Major depressive disorder, single episode, unspecified; Y99.8 Other external cause status; Y92.89 Other specified places as the place of occurrence of the external cause; Y93.89 Activity, other specified; Z81.8 Family history of other mental and behavioral disorders; Z82.49 Family history of ischemic heart disease and other diseases of the circulatory system; S63.267A Dislocation of metacarpophalangeal joint of left little finger, initial encounter; S92.335A Nondisplaced fracture of third metatarsal bone, left foot, initial encounter for closed fracture; S92.345A Nondisplaced fracture of fourth metatarsal bone, left foot, initial encounter for closed fracture
CPT/HCPCS: 24600; 36415; 70450; 71260; 72125; 73060; 73080; 73090; 73562; 73610; 73630; 73650; 74177; 80047; 80048; 80076; 82306; 83605; 83735; 85025; 85610; 85730; 86850; 86900; 86901; 90686; 93005; 96374; 96375; 96376; G0480; J1650; J2270; J2405; J2704; J3010; J7030; Q9967; 97116; 97530; 99285-25